=== PATIENT | male | born 2000 | race Caucasian/White ===

== ENCOUNTER 2024-11-08 13:48 | Emergency (ER) | payer BC ==
[2024-11-08] MEDS ORDERED: Dicyclomine 20 MG/2 ML VIAL ONE (14:10)
[2024-11-08] MEDS ORDERED: Ondansetron PF 4 MG/2 ML Vial ONE (14:10)
[2024-11-08 15:07] LABS: #Basophils 0.04 10x3/uL (0.0-0.2); #Monocytes 1.12 10x3/uL (0.0-1.1); #Neutrophils 22.07 10x3/uL (1.5-8.4); %Basophils 0.2 % (0.0-2.0); %Lymphocytes 4.6 % (18.0-47.0); %Monocytes 4.6 % (0.0-10.0); %Neutrophils 90.1 % (40.0-75.0); ALT (SGPT) 28 U/L (8-55); AST (SGOT) 20 U/L (5-34); Albumin 5.2 g/dL (3.5-5.0); Alkaline Phosphatase 58 U/L (40-110); Anion Gap 24 mmol/L (10-20); BUN (Urea Nitrogen) 20 mg/dL (8.9-20.6); Bilirubin, Total 0.7 mg/dL (0.2-1.2); Calc. Creatinine Clearance 0 mL/min (70-130); Calcium 10.2 mg/dL (7.8-10.44); Carbon Dioxide 21 mmol/L (22-29); Chloride 101 mmol/L (98-107); Estimated GFR 86; Globulin 3.8 g/dL (2.4-3.5); Glucose 129 mg/dL (70-105); Hematocrit 48.5 % (38.8-50.0); Hemoglobin 16.5 g/dL (13.5-17.5); Mean Corpuscular Hemoglobin 26.7 pg (27.0-33.0); Mean Corpuscular Volume 78.4 fL (81.2-95.1); Mean Platelet Volume 8.7 fL (7.4-10.4); Platelet Count 334 10x3/uL (150-450); RBC Distribution Width 12.6 % (11.5-14.5); Red Blood Cell (RBC) Count 6.19 10x6/uL (4.32-5.72); Sodium 142 mmol/L (136-145); White Blood Cell (WBC) Count 24.5 10x3/uL (3.5-10.5)
== END 2024-11-08 15:43 | disposition home or self-care (01) ==
LOC: CSHERS 13:48
DX: R11.2 Nausea with vomiting, unspecified (principal); F17.210 Nicotine dependence, cigarettes, uncomplicated
CPT/HCPCS: 80053; 85025; 96372; 96374; J2405